=== PATIENT | female | born 1965 | race Caucasian/White ===

== ENCOUNTER → 2017-06-12 | Outpatient (CLI) | payer OTHER ==
[~2017-06-12] MED LIST: ASPI81CH; ASPI81CH PO; ATOR10; CEFU500 PO; CIPR500 PO; CITA20 PO; DOCU100 PO; ESTR2; Flomax0.4 MG PO; GLIM2; HYDACE5 PO; IBUP600 PO; IBUP800 PO; LIRA0.6P; LISI5; MEDR10; METF500; OXYACE5T PO; POTCIT5 PO; PROM25 PO; PROM25S PR; Prilosec Otc20 MG PO; RXHYDMOR2 PO; RXOXYACE PO; TAMS.4ER PO; TRULICITY0.75 MG/0. SQ; XIGDUO XR 5 MG1 EAC1; Zofran Odt4 MG SL
[2017-06-12 12:54] LABS: BASOPHILS ABSOLUTE AUTO 0.05 K/mm3 (0.00-0.23); BASOPHILS PERCENT AUTO 0 % (0-2); EOSINOPHILS ABSOLUTE AUTO 0.08 K/mm3 (0.00-0.68); EOSINOPHILS PERCENT AUTO 1 % (0-6); Hematocrit 44.3 % (33.0-51.0); Hemoglobin 14.7 g/dL (11.5-16.0); IMMATURE GRAN ABSOLUTE AUTO 0.06 K/mm3 (0.00-0.10); IMMATURE GRAN PERCENT AUTO 1 % (0-1); LYMPHOCYTES ABSOLUTE AUTO 2.37 K/mm3 (0.84-5.20); LYMPHOCYTES PERCENT AUTO 18 % (21-46); MONOCYTES PERCENT AUTO 5 % (4-13); Mean Corpuscular HGB 27.8 pg (26.0-34.0); Mean Corpuscular HGB Conc 33.2 g/dL (31.5-36.5); Mean Corpuscular Volume 84 fL (80-100); Mean Platelet Volume 9.3 fL (9.1-12.4); NEUTROPHILS ABSOLUTE AUTO 10.06 K/mm3 (1.96-9.15); NEUTROPHILS PERCENT AUTO 75 % (41-73); Platelet Count 315 K/mm3 (150-400); RDW Coefficient Variation 13.2 % (11.7-14.2); RDW Standard Deviation 40.6 fL (35.1-46.3); Red Blood Cell Count 5.29 M/mm3 (3.80-5.20); White Blood Cell Count 13.32 K/mm3 (4.00-11.30)
[2017-06-12 13:06] LABS: Alanine Aminotransfer (ALT/SGP 29 U/L (12-78); Albumin, Blood 3.8 g/dL (3.4-5.0); Alk Phos 109 U/L (50-136); Anion Gap 8 mmol/L (6-16); Aspartate Aminotrans (AST/SGOT 8 U/L (12-37); Bilirubin, Total 0.6 mg/dL (0.1-1.0); Blood Urea Nitrogen 11 mg/dL (8-24); Bun/Creatinine Ratio 22.7 (12.0-20.0); CO2, Blood 26 mmol/L (21-32); Calcium, Blood 8.9 mg/dL (8.5-10.1); Chloride, Blood 103 mmol/L (98-108); Creatinine, Blood 0.48 mg/dL (0.40-1.00); Glomerular Filtration Rate >60 (60-); Glucose, Blood 143 mg/dL (70-99); Potassium, Blood 4.1 mmol/L (3.5-5.5); Sodium, Blood 137 mmol/L (136-145); Total Protein, Blood 7.8 g/dL (6.4-8.2)
[2017-06-12 13:09] LABS: Thyroid Stimulating Hormone 0.894 uIU/mL (0.360-4.800)
== END ==
LOC: LAB 12:37
DX: R19.7 Diarrhea, unspecified (principal); M25.50 Pain in unspecified joint
CPT/HCPCS: 80053; 83036; 84443; 85025; 85651

== ENCOUNTER 2017-07-16 12:02 | Day surgery (SDC) | payer OTHER ==
[~2017-07-16] VITALS: Ht 167.6 cm; Wt 104.4 kg
[~2017-07-16 12:02] MED LIST changes: -ASPI81CH; -ASPI81CH PO; -ATOR10; -GLIM2; -LISI5; -Prilosec Otc20 MG PO; -TRULICITY0.75 MG/0. SQ; -XIGDUO XR 5 MG1 EAC1
[2017-07-16] MEDS ORDERED: ATOR10 ×2 (12:24→12:46)
[2017-07-16] MEDS ORDERED: LISI5 (12:45)
[2017-07-16] MEDS ORDERED: GLIM2 (12:45)
[2017-07-16] MEDS ORDERED: ASPI81CH (12:46)
[2017-07-16] MEDS ORDERED: XIGDUO XR 5 MG1 EAC1 (12:47)
== END 2017-07-16 14:40 | disposition home or self-care (01) ==
LOC: ORSCSDS 12:02
PROVIDERS: Internal Medicine Gastroenterology
PROC: 0DBL8ZX Excision of Transverse Colon, Via Natural or Artificial Opening Endoscopic, Diagnostic (ICD-10-PCS; principal; 2017-07-16 13:30)
PROC: 0DBH8ZX Excision of Cecum, Via Natural or Artificial Opening Endoscopic, Diagnostic (ICD-10-PCS; principal; 2017-07-16 13:30)
PROC: 0DBN8ZX Excision of Sigmoid Colon, Via Natural or Artificial Opening Endoscopic, Diagnostic (ICD-10-PCS; principal; 2017-07-16 13:30)
DX: Z12.11 Encounter for screening for malignant neoplasm of colon (principal); Z86.010 Personal history of colon polyps; Z80.0 Family history of malignant neoplasm of digestive organs; D12.0 Benign neoplasm of cecum; D12.3 Benign neoplasm of transverse colon; K63.5 Polyp of colon; K57.30 Diverticulosis of large intestine without perforation or abscess without bleeding; E11.9 Type 2 diabetes mellitus without complications; G47.33 Obstructive sleep apnea (adult) (pediatric); Z79.82 Long term (current) use of aspirin; Z79.899 Other long term (current) drug therapy
CPT/HCPCS: 82947; 88305; J1980; J7120

== ENCOUNTER → 2019-07-31 | Outpatient (CLI) | payer OTHER ==
[~2019-07-31] MED LIST changes: +ASPI81CH; +ASPI81CH PO; +ATOR10; +GLIM2; +LISI5; +Prilosec Otc20 MG PO; +TRULICITY0.75 MG/0. SQ; +XIGDUO XR 5 MG1 EAC1
== END ==
LOC: LAB SHORT 12:03 → LAB 12:03
DX: R30.0 Dysuria (principal)
CPT/HCPCS: 87077; 87086; 87186

== ENCOUNTER → 2021-01-16 | Outpatient (CLI) | payer OTHER ==
[~2021-01-16] MED LIST changes: +ESCI10 PO; +EZET10 PO; +LOSA25 PO
== END | disposition home or self-care (01) ==
LOC: LAB 14:43 → LAB SHORT 14:43
DX: D22.5 Melanocytic nevi of trunk (principal)
CPT/HCPCS: 88305

== ENCOUNTER 2024-12-28 08:41 | Day surgery (SDC) | payer BC ==
[~2024-12-28] VITALS: Ht 167.6 cm; Wt 97.1 kg
[~2024-12-28 08:41] MED LIST changes: +SEMAGLUTID0.25 MG/0. SQ
[2024-12-28] MEDS ORDERED: NAPR500 PO (10:16)
[2024-12-28 13:17] VITALS: BP 111/62
== END 2024-12-28 13:14 | disposition home or self-care (01) ==
LOC: ORSCSDS 08:41
PROVIDERS: Internal Medicine Gastroenterology
PROC: 0DBL8ZX Excision of Transverse Colon, Via Natural or Artificial Opening Endoscopic, Diagnostic (ICD-10-PCS; principal; 2024-12-28 11:00)
PROC: 0DBN8ZX Excision of Sigmoid Colon, Via Natural or Artificial Opening Endoscopic, Diagnostic (ICD-10-PCS; principal; 2024-12-28 11:00)
PROC: 0DBM8ZX Excision of Descending Colon, Via Natural or Artificial Opening Endoscopic, Diagnostic (ICD-10-PCS; principal; 2024-12-28 11:00)
PROC: 0DBP8ZX Excision of Rectum, Via Natural or Artificial Opening Endoscopic, Diagnostic (ICD-10-PCS; principal; 2024-12-28 11:00)
DX: Z12.11 Encounter for screening for malignant neoplasm of colon (principal); Z86.0101 Personal history of adenomatous and serrated colon polyps; Z83.719 Family history of colon polyps, unspecified; D12.3 Benign neoplasm of transverse colon; D12.4 Benign neoplasm of descending colon; D12.8 Benign neoplasm of rectum; K63.5 Polyp of colon; K64.4 Residual hemorrhoidal skin tags; K57.30 Diverticulosis of large intestine without perforation or abscess without bleeding; K63.3 Ulcer of intestine; E11.9 Type 2 diabetes mellitus without complications; G47.33 Obstructive sleep apnea (adult) (pediatric); Z79.899 Other long term (current) drug therapy; Z79.85 Long-term (current) use of injectable non-insulin antidiabetic drugs; I10 Essential (primary) hypertension; K75.81 Nonalcoholic steatohepatitis (NASH); E66.9 Obesity, unspecified; Z68.34 Body mass index [BMI] 34.0-34.9, adult
CPT/HCPCS: 82947; 88305; J2704; J7120